=== PATIENT | female | born 1985 | race Caucasian/White ===

== ENCOUNTER → 2020-07-01 | Outpatient (CLI) | payer OTHER | LOC: DIA.ED 09:13 | DX: O24.419 Gestational diabetes mellitus in pregnancy, unspecified control (principal) | CPT/HCPCS: G0108 ==

== ENCOUNTER → 2020-07-09 | Outpatient (CLI) | payer OTHER | LOC: DIA.ED 09:24 | DX: O24.419 Gestational diabetes mellitus in pregnancy, unspecified control (principal) | CPT/HCPCS: G0108 ==

== ENCOUNTER → 2020-09-03 | Outpatient (CLI) | payer OTHER ==
[~2020-09-03] MED LIST: IBU600 MG PO; PEPCID 20MG TAB20 MG PO; PRENATAL DHA 200 SG PO; PRENATAL TABLET PO
== END | disposition still patient (30) ==
LOC: ZCOL.LAB 08:00
DX: Z20.828 Contact with and (suspected) exposure to other viral communicable diseases (principal)

== ENCOUNTER 2020-09-09 08:27 | Inpatient (IN) | payer OTHER ==
[~2020-09-09] VITALS: Ht 167.6 cm; Wt 92.7 kg
[2020-09-09] VITALS (23 sets, daily range): BP systolic 97–168; BP diastolic 46–89; PULSE 77–95; TEMP 98.2–98.8
--- NOTE | 2020-09-09 07:15 | NUR ---
Patient ambulatory to LR6 with spouse, changed into gown, FHR/TOCO monitors placed and explained. Patient denies any regular contractions/leaking of fluid/vaginal bleeding/decreased movement. Plan of care discussed and questions answered. 0730: IV started in left upper arm per Shawn GUAMAN. Blood obtained and to lab and LR infusing. Assessment completed/consents signed/ packet given. 0748: FHR baseline 135-140bpm. FHR decreasing to 70-115bpm for approx. 4 minutes, patient turned wedged left. FHR gradually returns to 140bpm. 0810: FHR intermittently tracing to 70bpm, monitor adjusted. 0830: Dr. Claudio notified and will be to hospital soon. 0855: Dr. Claudio at bedside and assessing patient and FHR strip. Patient up to bathroom. 0900: SVE per phsyician /1 and AROM at this time with clear fluid noted.
[2020-09-09 08:24] LABS: BASO % 0.4 % (0.0-2.0); EOS # 0.1 (0.0-0.7); EOS % 0.6 % (0-4.0); GRAN # 5.7 (1.4-6.5); GRAN % 67.5 % (42.2-75.2); HEMATOCRIT 39.8 % (37.0-47.0); HEMOGLOBIN 13.5 g/dl (12.5-16.0); LYMPH # 1.8 (1.2-3.4); LYMPH % 21.6 % (20.0-51.0); MEAN CELL VOLUME 92 fl (80.0-100.0); MEAN CORPUSCULAR HEMOGLOBIN 31 pg (27.0-31.0); MEAN CORPUSCULAR HGB CONC 34 g/dl (33.0-37.0); MEAN PLATELET VOLUME 10.1 fl (7.4-10.4); MONO # 0.8 (0.1-0.6); PLATELET COUNT 285 K/mm3 (130-400); RED BLOOD COUNT 4.35 M/mm3 (4.10-5.30); REDCELL DISTRIBUTION WIDTH-CV 13.4 % (11.5-14.5)
[~2020-09-09 08:27] MED LIST changes: -IBU600 MG PO
--- NOTE | 2020-09-09 08:45 | NUR ---
Patient states fasting sugar at 0622 was 84. 0845: Patient checks own sugar at this time-119 Dr. Claudio orders to no longer check blood sugars.
--- NOTE | 2020-09-09 09:35 | NUR ---
FHR baseline 145bpm and subtle late decelerations noted. Patient wedged left with peanut ball in placed. 0955: Patient requests epidural and Roselia RENDON notified. 1000: Patient states she is feeling alot of pressure. SVE-5-6/80/-1. 1012: Patient sat up for placement of epidural and Bucky Daniels [employer] at bedside. Difficulty tracing FHR due to maternal position. 1016: Single shot given and patient tolerates well. 1020: Patient repositioned and SVE- 9-10/100/0. Plan of care discussed and safety precautions gone over. 1026: Dr. Claudio notified and on the way.
--- NOTE | 2020-09-09 10:30 | NUR ---
FHR baseline 115bpm. 1030: at bedside 1032: SVE per phsyician-complete. Meconium fluid noted at this time. Patient prepped for vaginal delivery and bed taken apart. Pericare done. FHR baseline 110-115bpm and variable declerations noted. 1038: Patient begins to push with each contraction per physicians orders. 1044: Spontaneous vaginal delivery of viable male-head followed by body. Infant bulb syringed and to patients abdomen. Lindsay RN assumes care of . Cord clamped by physician and cut by FOB. Cord blood obtained. Dr. Claudio [facility] catherizes patient at this time. 1049: Spontaneous delivery of placenta and pitocin bolus started at 333mU/hr per protocol. Fundal massage done/firm/bleeding WNL. Pericare done and plan of care discussed. Patient repositioned and ice pack to perineum. Questions answered.
--- NOTE | 2020-09-09 13:50 | NUR ---
Patient sitting up on edge of bed, feet dangled. Epidural catheter removed and patient tolerates well. Patient ambulates to new room and oriented to new room. Plan of care discussed.
[2020-09-10 04:15] VITALS: BP 104/64; PULSE 86; TEMP 98.3
[2020-09-10 07:36] VITALS: BP 106/69; PULSE 97; TEMP 98.1
[2020-09-10] MEDS ORDERED: IBU600 MG PO (08:56)
--- NOTE | 2020-09-10 11:15 | NUR ---
Patient requests to go boarder status. given discharge instructions and denies questions. Paperwork signed.
== END 2020-09-10 11:15 | disposition home or self-care (01) | DRG 807 ==
LOC: LDR 08:27 → OB 08:35
PROVIDERS: ADMIT Obstetrics & Gynecology
PROC: 10E0XZZ Delivery of Products of Conception, External Approach (ICD-10-PCS; principal; 2020-09-09)
PROC: 10907ZC Drainage of Amniotic Fluid, Therapeutic from Products of Conception, Via Natural or Artificial Opening (ICD-10-PCS; 2020-09-09)
DX: O24.420 Gestational diabetes mellitus in childbirth, diet controlled (principal); Z37.0 Single live birth; Z3A.39 39 weeks gestation of pregnancy
CPT/HCPCS: J2590; J2795; J7120